=== PATIENT | female | born 2000 | race Caucasian/White ===

== ENCOUNTER 2018-05-26 19:03 | Emergency (ER) | payer OTHER ==
[2018-05-26 19:36] VITALS: BP 123/74
--- NOTE | 2018-05-26 19:55 | UC ---
General HPI - HPI Summary HPI Summary: Patient presents accompanied by a friend. She is complaining of a two-week history of intermittent headaches. She describes it as "tension" gesturing between her eyes and the bridge of the nose as well as pressure in her ears plus tension in the sides of her neck and body aches. She denies any associated fever or injury. She has been self treating with Tylenol Cold medication which gives her temporary relief. She denies history of migraines. She denies associated light sensitivity but notes that sometimes noise is bothersome. She is adamant that this is not an abrupt or worst headache. She denies any family history of migraine headaches as well as cerebral aneurysm. There is no associated watery eyes or sneezing plus patient denies history of allergies. None of her roommates are ill. Her last dose of self medication was yesterday. - History of Current Complaint Chief Complaint: UCGeneralIllness Stated Complaint: HEADACHE/NECK AND EAR PAIN Time Seen by Provider: 05/26/18 19:42 Hx Obtained From: Patient Hx Last Menstrual Period: 05/15/18 Pain Intensity: 3 Associated Signs & Symptoms: Positive: Headache. Negative: Fever, Nausea, Vomiting - Allergy/Home Medications Allergies/Adverse Reactions: Allergies Allergy/AdvReac Type Severity Reaction Status Date / Time No Known Allergies Allergy Verified 05/26/18 19:35 Home Medications: Home Medications Guaifen/Phenyleph/Acetaminophn [Tylenol Cold Head Congest Cplt] 1 each PO DAILY 05/26/18 [History Confirmed 05/26/18] PMH/Surg Hx/FS Hx/Imm Hx Previously Healthy: Yes - Surgical History Surgical History: Yes Surgery Procedure, Year, and Place: 2015 spinal fusion - Family History Known Family History: Positive: None - Social History Occupation: Student Lives: Dormitory/Roommates Alcohol Use: Occasionally Substance Use Type: None Smoking Status (MU): Never Smoked Tobacco - Immunization History Vaccination Up to Date: Yes Review of Systems Constitutional: Negative Skin: Negative Eyes: Negative ENT: Negative Respiratory: Negative Cardiovascular: Negative Gastrointestinal: Negative Genitourinary: Negative Motor: Negative Neurovascular: Negative Musculoskeletal: Myalgia Neurological: Headache Psychological: Negative Is Patient Immunocompromised?: No All Other Systems Reviewed And Are Negative: Yes Physical Exam Triage Information Reviewed: Yes Appearance: Well-Appearing Vital Signs: Initial Vital Signs Temp 99.3 F 05/26/18 19:31 Pulse 97 05/26/18 19:31 Resp 16 05/26/18 19:31 BP 123/74 05/26/18 19:31 Pulse Ox 99 05/26/18 19:31 Vital Signs Reviewed: Yes Eyes: Positive: Conjunctiva Clear, Other: - PERRL, EOMI. ENT: Positive: Pharynx normal, TMs normal, Other - Mastoids non tender. No auricular adenopathy.. Negative: Nasal congestion, Nasal drainage Neck: Positive: Supple, Nontender, No Lymphadenopathy, Other: - Flanks of the trapezius mm is tender. Negative: Nuchal Rigidity Respiratory: Positive: Lungs clear, Normal breath sounds Cardiovascular: Positive: RRR, No Murmur Abdomen Description: Positive: Nontender, No Organomegaly, Soft Bowel Sounds: Positive: Present Musculoskeletal: Positive: ROM Intact, No Edema Neurological: Positive: Other: - Patient is alert and oriented 3. Cranial nerves II through XII are grossly intact. She has 5 out of 5 strength and 2+ reflexes 4. She is normal steady gait. She is negative Romberg and negative pronator drift. She is able to heel toe walk with ease. Psychological: Positive: Normal Response To Family, Age Appropriate Behavior Skin Exam: Normal Course/Dx - Course Course Of Treatment: pt is non toxic. she has no meningeal signs. her neuro exam is reassuring and this is not an abrupt or worst headache. i am going to tx for a tension headache with an NSAID. pt already has a f/u appt with the [facility] scheduled for tomorrow which I have advised she keep and go to ER immediately for any changes and worsening. pt agrees to this plan - Differential Dx - Multi-Symptom Provider Diagnoses: Episodic headaches. Discharge - Sign-Out/Discharge Documenting (check all that apply): Patient Departure All imaging exams completed and their final reports reviewed: No Studies - Discharge Plan Condition: Stable Disposition: HOME Prescriptions: Naproxen [Naprosyn 500 mg tab] 500 mg PO BID PRN #14 tablet PRN Reason: Headache/Pain Patient Education Materials: Acute Headache (DC) Referrals: [facility] [Outside] - 1 Day - Billing Disposition and Condition Condition: STABLE Disposition: Home
== END 2018-05-26 20:06 | disposition home or self-care (01) ==
LOC: UCCORT 19:03
DX: R51 Headache (principal)
CPT/HCPCS: 99202; G0463

== ENCOUNTER 2019-08-09 12:49 | Emergency (ER) | payer OTHER ==
[2019-08-09 13:48] VITALS: BP 125/54
--- NOTE | 2019-08-09 14:53 | UC ---
Lower Extremity/Ankle HPI - History of Current Complaint Chief Complaint: UCGeneralIllness Stated Complaint: FEVERS/BODY ACHES/ST Time Seen by Provider: 08/09/19 13:50 Hx Last Menstrual Period: "last week" Pain Intensity: 2 - Allergies/Home Medications Allergies/Adverse Reactions: Allergies Allergy/AdvReac Type Severity Reaction Status Date / Time No Known Allergies Allergy Verified 08/09/19 13:43 Home Medications: Home Medications Amoxicillin PO (*) [Amoxicillin 500 MG CAP*] 500 mg PO TID PRN 08/09/19 [ History Confirmed 08/09/19] Ibuprofen TAB* [Advil TAB*] 400 mg PO Q6H PRN 08/09/19 [History Confirmed ] PMH/Surg Hx/FS Hx/Imm Hx - Surgical History Surgical History: Yes Surgery Procedure, Year, and Place: Thoracic (?) Fusion for Scoliosis, 2014, [place] - Family History Known Family History: Positive: None - Social History Alcohol Use: Occasionally Substance Use Type: None Smoking Status (MU): Never Smoked Tobacco - Immunization History Vaccination Up to Date: Yes Physical Exam Vital Signs: Initial Vital Signs Temp 98.3 F 08/09/19 13:41 Pulse 108 08/09/19 13:41 Resp 18 08/09/19 13:41 BP 125/54 08/09/19 13:41 Pulse Ox 98 08/09/19 13:41 Lower Extremity Course/Dx - Differential Dx/Diagnosis Provider Diagnosis: Viral URI with cough Discharge ED - Sign-Out/Discharge Documenting (check all that apply): Patient Departure All imaging exams completed and their final reports reviewed: No Studies - Discharge Plan Condition: Stable Disposition: HOME Patient Education Materials: Upper Respiratory Infection (ED) Referrals: No Primary Care Phys,NOPCP [Primary Care Provider] - Additional Instructions: Your history and exam are consistent with a viral upper respiratory infection. Viral infections do not respond to antibiotics and are limited to the treatment of symptoms. Viral infections typically run their course in 7-10 days. Drink plenty of fluids to avoid dehydration especially if you are running any fever. Use an wzvb-euy-[id number] decongestant such as Sudafed to help with the nasal congestion. Use fluticasone (Flonase) nasal spray 2 sprays each nostril once daily. Use Tessalon Perles 1 capsule every 8 hours as needed for cough. Take over the counter acetaminophen (Tylenol) or ibuprofen (Advil, Motrin) according to directions as needed for pain or fever. Use salt water gargles several times a day if you have a sore throat. You may also use Chloraseptic spray or Cepacol lonzenges according to directions which contain a numbing medication and can provide some temporary relief from your sore throat. Return here or follow up with the [facility] in 5 days if symptoms persist. Seek immediate medical attention in the emergency room if you have fever greater than 100.5 F despite taking acetaminophen or ibuprofen, have chest pain , difficulty breathing, are unable to swallow, or have any worsening of symptoms. - Billing Disposition and Condition Condition: STABLE Disposition: Home
== END 2019-08-09 15:00 | disposition home or self-care (01) ==
LOC: UCCORT 12:49
DX: J06.9 Acute upper respiratory infection, unspecified (principal); R05 Cough
CPT/HCPCS: 87651; 99212; G0463

== ENCOUNTER 2019-08-12 15:55 | Emergency (ER) | payer OTHER ==
--- NOTE | 2019-08-12 16:40 | UC ---
Throat Pain/Nasal Fausto HPI - HPI Summary HPI Summary: Patient presents to urgent care for repeat visit. Patient was here 3 days ago with head congestion and sore throat and cough. Patient was told to the viral syndrome and was prescribed Flonase and Tessalon Perles. Patient states progressive settled in her chest. Patient states she is coughing up green sputum. Patient states she has fevers to 99.7. Patient denies any shortness of breath but states she has a vital right lung. Patient states when she coughs she produces green sputum. Patient states when she takes a deep breath she feels burning in her throat. Patient reports mild throat pain otherwise. Patient states she is not . No abdominal pain. No nausea or vomiting. No urinary symptoms. No vaginal discharge, itching, odor. Patient was prescribed Flonase and Tessalon Perles and is taking Motrin and Tylenol for her fever. Patient states she says getting worse not better. Patient states she has had sick contacts on campus. Patient's medications relieve this visit. - History of Current Complaint Chief Complaint: UCRespiratory Stated Complaint: COUGH/CHEST CONGESTION Time Seen by Provider: 08/12/19 16:29 Hx Obtained From: Patient Hx Last Menstrual Period: 08/01/19 Pain Intensity: 5 - Allergies/Home Medications Allergies/Adverse Reactions: Allergies Allergy/AdvReac Type Severity Reaction Status Date / Time No Known Allergies Allergy Verified 08/12/19 16:25 Home Medications: Home Medications Acetaminophen TAB* [Tylenol TAB*] 650 mg PO Q4H PRN 08/12/19 [History Confirmed 08/12/19] PMH/Surg Hx/FS Hx/Imm Hx Previously Healthy: Yes - Surgical History Surgical History: Yes Surgery Procedure, Year, and Place: Thoracic (?) Fusion for Scoliosis, 2014, [place] - Family History Known Family History: Positive: Non-Contributory - Social History Occupation: Student Lives: Dormitory/Roommates Alcohol Use: Occasionally Substance Use Type: None Smoking Status (MU): Never Smoked Tobacco - Immunization History Vaccination Up to Date: Yes Review of Systems All Other Systems Reviewed And Are Negative: Yes Constitutional: Positive: Fever, Fatigue Eyes: Positive: Negative ENT: Positive: Sore Throat, Nasal Discharge Respiratory: Positive: Cough Cardiovascular: Positive: Negative Gastrointestinal: Positive: Negative Genitourinary: Positive: Negative Physical Exam - Summary Physical Exam Summary: Vital Signs Reviewed: Yes A+Ox3, no distress Eyes: Conjunctiva Clear, JOE. EOM intact and full ENT: Hearing grossly normal TM x 2 visulaized - slight fluid, no erythema, turbiantes inflammed + PND, mmoist, uvula midline, no exudate, no erythema Neck: Positive: Supple Respiratory: Positive: coarse intermittent coughing, scattered wheeze Right>L no accessory m use Cardiovascular: RRR nl s1, s2 no m/r CBT <2 sec abd soft + BS nt/nd no guarding, no distension Musculoskeletal Exam: JOYNER x 4 without difficulty Strength Intact, ROM Intact Neurological: Positive: Alert, + sensation throughout Psychological: Positive: Normal Response To examiner Skin: Positive: no rash, no ecchymosis Triage Information Reviewed: Yes Vital Signs: Initial Vital Signs Temp 99.6 F 08/12/19 16:27 Pulse 100 08/12/19 16:27 Resp 16 08/12/19 16:27 BP 124/62 08/12/19 16:27 Pulse Ox 97 08/12/19 16:27 Diagnostics - Radiology No standard instances Radiology Interpretation Completed By: Radiologist - Patient Name: GRACIELA SANTOS Medical Record#: [id number] Ordering Physician: Pam Cochran MD Acct.#: [id number] : 1999 Age: 18 Sex: F Location: [facility] Exam Date: 08/12/191648 ADM Status: REG ER Order Information: CHEST PA & LAT 2 VWS Accession Number : [id number] CPT: 55100 INDICATION: Cough and green phlegm. COMPARISON: There are no prior studies available for comparison. TECHNIQUE: Dual-energy PA and lateral views of the chest were obtained. FINDINGS: The heart is within normal limits in size. Mediastinal and hilar contours appear within normal limits. There is a focal patchy infiltrate which is moderate in size in the right lower lobe. No pleural effusion is seen. The patient is status post posterior fusion of the dorsal spine. IMPRESSION: RIGHT LOWER LOBE INFILTRATE MOST CONSISTENT WITH PNEUMONIA. < Electronically signed by Carlos Orosco MD in OV> 08/12/191735 Dictated By: Carlos Orosco MD Dictated Date/Time: 08/12/191734 Transcribed Date/Time: 1734 Copy to: CC:Pam Cochran MD; No Primary Care Phys,NOPCP Imaging - [facility] Imaging - [facility] Imaging - [facility] [address] [place], [place] [id number] [place] [id number] [place] [id number] ph ([phone]) ph ([phone]) ph ([phone]) This report is only to be considered final once signed by the Provider(s) as displayed in the "<Electronically Signed by >" field (s). Absence of a signature indicates the report is in a draft status and still needs to be finalized. In the event this document was created by someone other than the signing Provider, the individual initiating the document will be listed in the "Entered by:" or "Dictated by:" krishna. 1 of 1 Re-Evaluation - Re-Evaluation First Eval Change: Improved - improved follownig neb states feels coughing more but looser will give second neb +RLL pna abx mdi secretion precaution, return precaution declined offer to call parents Second Eval Change: Improved Comment: couging improved following neb. repeat VS with increased fever. will give APAP. reviewed motrin/apap. hydrate. return precautions. pt communicating wtih mom - declined my offer to call. Pt going home tomorrow - driving Throat Pain/Nasal Course/Dx - Course Course Of Treatment: Patient returns to urgent care for evaluation. Patient was here 3 days ago diagnosed with viral syndrome. Patient's eye was mostly in her head. Patient negative strep at that time. Patient states also her chest. Patient states she has a rattle in her cough lungs when she coughs. Patient bringing up green sputum. Patient states she continues to have fevers. Patient has been taking Tessalon Perles, Flonase, Motrin and Tylenol with little improvement. Patient does have sick contacts. Patient did not the flu vaccine this year. On exam vital signs are stable. Patient with sinus congestion and postnasal drip. Patient does have scattered expiratory wheezes radius left. No increased work of breathing. Patient has a coarse cough. We'll give a DuoNeb chest x-ray. They will do antibiotics. Discussed the patient's appreciable caution. Return precaution. Patient comfortable and agreeable to plan. - Differential Dx/Diagnosis Provider Diagnosis: PNA (pneumonia) Discharge ED - Sign-Out/Discharge Documenting (check all that apply): Patient Departure All imaging exams completed and their final reports reviewed: Yes - Discharge Plan Condition: Stable Disposition: HOME Prescriptions: Albuterol HFA INHALER* [Ventolin HFA Inhaler*] 2 puff INH Q4H PRN #1 mdi PRN Reason: wheeze DOXYcycline CAP(*) [DOXYcycline 100MG CAP(*)] 100 mg PO BID #20 cap Inhaler, Assist Devices [Aerochamber Mv] 1 each PO Q4HR #1 spacer Patient Education Materials: Pneumonia (ED) Referrals: [facility] [[facility], [facility], OTHER] - Additional Instructions: - Take antibiotics exactly as prescribed until gone - Use your albuterol puffer - 2 puffs ever 4-6 hours for the next 2 days - then as needed -Okay to alternate ibuprofen (Advil, Motrin) 600mg and Tylenol (acetaminophen) 1000mg every 3 hours for pain or fever. Take with food. Do NOT take for more than 4-5 days. -These infections are spread by oral secretions. Do not share eating or drinking utensils. Frequent hand washing is important. Clean items that may get your secretions on them such as cell phones, ipads, computer mouse, television remotes. Once you have been on antbiotics for 2 days, change your pillowcase and your toothbrush - humidify the air in the room where you sleep - boil water, run a hot steam shower, vaporizer, cups of water by heat register -Stay well hydrated - avoid excess caffeine and all alcohol - eat regular, healthy meals - okay to take Tessalon perles as prescribed previously you may also take over the counter cough medications, -Contact your doctor to arrange a follow-up appointment this week. Call your doctor, return here or go to the emergency department with any questions or concerns - Billing Disposition and Condition Condition: STABLE Disposition: Home
[2019-08-12] MEDS ORDERED: Albuterol/Ipratropium NEB.SOL* Albuterol 2.5 MG/Ipratropium 0.5 MG 3 ML INH ONE ×2 (16:49→17:42)
[2019-08-12] MEDS ORDERED: Acetaminophen TAB* 325 MG PO ONE (17:59)
[2019-08-12 18:00] VITALS: BP 112/52
== END 2019-08-12 18:15 | disposition home or self-care (01) ==
LOC: UCCORT 15:55
DX: J18.9 Pneumonia, unspecified organism (principal); J02.9 Acute pharyngitis, unspecified; R09.89 Other specified symptoms and signs involving the circulatory and respiratory systems; R09.81 Nasal congestion; R91.8 Other nonspecific abnormal finding of lung field
CPT/HCPCS: 71046; 99213; A9270-GY; G0463

== ENCOUNTER 2019-10-28 10:16 | Emergency (ER) | payer OTHER ==
[2019-10-28 12:07] VITALS: BP 112/72
[2019-10-28 12:19] LABS: Influenza A Molecular POSITIVE (Negative)
--- NOTE | 2019-10-28 12:19 | UC ---
FLU HPI - HPI Summary HPI Summary: 19 y/o female presents to the urgent care c/o sore throat, dry cough, body aches , fever, chills, and DUVAL for the past 2 days. Fever has been low grade and she has been taken Tylenol and Dayquill PO to alleviate symptoms. She is eating and drinking fluids. Pt denies SOB, wheezing, dizziness, ches tpain,a bdominal pain , N/V/D - History of Current Complaint Chief Complaint: UCGeneralIllness Stated Complaint: FLU LIKE SYMPTOMS-NO TRAVEL Time Seen by Provider: 10/28/19 12:01 Hx Obtained From: Patient Hx Last Menstrual Period: 10/01/2019 ?: No Onset/Duration: Gradual Onset, Lasting Days - 2 days, Still Present, Worse Since - today Severity Currently: Mild Severity Initially: Moderate Pain Intensity: 4 Pain Scale Used: 0-10 Numeric Associated Signs & Symptoms: Positive: Fever, Myalgia, Cough, Sore Throat, Nasal Congestion - clear, Headache. Negative: Vomiting, Diarrhea - Risk Factors Influenza Risk Factors: Negative - Allergy/Home Medications Allergies/Adverse Reactions: Allergies Allergy/AdvReac Type Severity Reaction Status Date / Time No Known Allergies Allergy Verified 10/28/19 12:07 PMH/Surg Hx/FS Hx/Imm Hx Previously Healthy: Yes - Pt denies FMHX - Surgical History Surgical History: Yes Surgery Procedure, Year, and Place: Thoracic (?) Fusion for Scoliosis, 2014, - Family History Known Family History: Positive: Diabetes - Social History Occupation: Employed Full-time Lives: With Family Alcohol Use: Occasionally Substance Use Type: None Smoking Status (MU): Never Smoked Tobacco - Immunization History Vaccination Up to Date: Yes Review of Systems All Other Systems Reviewed And Are Negative: Yes Constitutional: Positive: Fever, Chills, Fatigue, Other - body aches Skin: Positive: Negative Eyes: Positive: Negative ENT: Positive: Sore Throat, Nasal Discharge - clear Respiratory: Positive: Cough - dry Cardiovascular: Positive: Negative Gastrointestinal: Positive: Negative Genitourinary: Positive: Negative Motor: Positive: Negative Neurovascular: Positive: Negative Musculoskeletal: Positive: Myalgia Neurological: Positive: Headache Psychological: Positive: Negative Is Patient Immunocompromised?: No Physical Exam - Summary Physical Exam Summary: VITAL SIGNS: Reviewed. GENERAL: Patient is a well developed and nourished female who is sitting comfortably in the examining table. Patient is not in any acute respiratory distress. HEAD AND FACE: No signs of trauma. No ecchymosis, hematomas or skull depressions. No sinus tenderness. EYES: PERRLA, EOMI x 2, No injected conjunctiva, no nystagmus. No photophobia. EARS: Hearing grossly intact. Ear canals and tympanic membranes are within normal limits. MOUTH: Positive pharynx with mild erythema, no exudates, No B/L tonsillar enlargement , no exudate. Uvula in midline. edematous nasal mucosa w/ clear nasal discharge, clear PND NECK: Supple, trachea is midline, Positive anterior cervical lymphadenopathy, no JVD, no carotid bruit, no c-spine tenderness, neck with full ROM. No meningeal signs, no Kernig's or brudzinskis signs. CHEST: Symmetric, no tenderness at palpation LUNGS: Clear to auscultation bilaterally. No wheezing or crackles. CVS: Regular rate and rhythm, S1 and S2 present, no murmurs or gallops appreciated. ABDOMEN: Soft, non-tender. No signs of distention. No rebound no guarding, and no masses palpated. Bowel sounds are normal. EXTREMITIES: FROM in all major joints, no edema, no cyanosis or clubbing. NEURO: Alert and oriented x 3. No acute neurological deficits. Pt follows commands. SKIN: Dry and warm Triage Information Reviewed: Yes Vital Signs: Initial Vital Signs Temp 98.4 F 10/28/19 12:06 Pulse 95 10/28/19 12:06 Resp 15 10/28/19 12:06 BP 112/72 10/28/19 12:06 Pulse Ox 99 10/28/19 12:06 Flu Course/Dx - Course Course Of Treatment: 19 y/o female presents to the urgent care c/o sore throat, dry cough, body aches , fever, chills, and DUVAL for the past 2 days. Fever has been low grade and she has been taken Tylenol and Dayquill PO to alleviate symptoms. She is eating and drinking fluids. Pt denies SOB, wheezing, dizziness, ches tpain,a bdominal pain , N/V/D. Pt with URI on examination. Rapid strep ordered, result: negative.Influenza A&B ordered: result: Influenza A positive.Pt Rx Tamiflu and advised to take ibuprofen or Tylenol PO to alleviate symptoms. Advised on hand washing and wearing a mask to avoid spreading. Pt advised to rest, increase fluid intake, eat well and avoid strenuous exercise. If symptoms do not improve or worsen advised to return to the urgent care or f/u with her PCP in 2 days for further evaluation and treatment. Pt understood and agreed - Differential Dx/Diagnosis Differential Diagnosis/HQI/PQRI: Bronchitis, Influenza, Pneumonia, Upper Respiratory Infection Provider Diagnosis: Influenza A Discharge ED - Sign-Out/Discharge Documenting (check all that apply): Patient Departure - d/c home All imaging exams completed and their final reports reviewed: No Studies - Discharge Plan Condition: Stable Disposition: HOME Prescriptions: Oseltamivir CAP* [Tamiflu CAP*] 75 mg PO BID #10 cap Patient Education Materials: Influenza (ED) Forms: *School Release Referrals: [facility] [Outside] - 2 Days Additional Instructions: 1- Please take the full course of the antiviral to avoid resistance. Encourage hand washing and wear a mask to avoid spreading. 2-Please continue taking Tylenol PO q6-8hrs prn as instructed after meals to alleviate fever, and sore throat. Increase fluid intake, eat well, rest and avoid strenuous exercise 3-If symptoms do not improve or worsen please return to the urgent care or f/u with your PCP in 2 days for further evaluation and treatment. - Billing Disposition and Condition Condition: STABLE Disposition: Home - Attestation Statements Provider Attestation: I was available for consult. This patient was seen by the SRIKANTH. The patient was not presented to, seen by, or examined by me. -Michelle
== END 2019-10-28 12:35 | disposition home or self-care (01) ==
LOC: UCCORT 10:16
DX: J10.1 Influenza due to other identified influenza virus with other respiratory manifestations (principal)
CPT/HCPCS: 99212; G0463